=== PATIENT | female | born 1960 | race Caucasian/White ===

== ENCOUNTER 2021-01-27 20:47 | Emergency (ER) | payer BC ==
--- NOTE | 2021-01-27 20:49 | ERPHSYRPT ---
- History of Present Illness Time Seen by Provider: 01/27/21 20:49 Source: patient Exam Limitations: no limitations Physician History: This is a 60-year-old white female who was walking down the steps and misstepped falling and hitting her left side of her head and face. Patient is not on any blood thinning medicine. Her tetanus status is up-to-date. She stated that she received a tetanus shot approximate August 2020. Patient did not lose consciousness. There are no other areas on the body that are painful per her report. Patient denies neck pain Occurred: just prior to arrival Reason for Fall: lost balance Injuries/Pain Location: head, face (Left ear) Loss of Consciousness: no loss of consciousness Quality: other (Tenderness) Severity of Pain-Max: moderate Severity of Pain-Current: moderate Associated Symptoms (Fall): denies symptoms Allergies/Adverse Reactions: latex Allergy (Verified 01/27/21 21:01) Home Medications: Escitalopram Oxalate 1 tab PO DAILY 01/27/21 [History] Hydrochlorothiazide 1 tab PO DAILY 01/27/21 [History] Levothyroxine Sodium 50 Mcg [Synthroid 50 Mcg] 1 tab PO DAILY 01/27/21 [History] Losartan Potassium 1 tab PO DAILY 01/27/21 [History] Travel Risk - International Travel Have you traveled outside of the country in past 3 weeks: No - Coronavirus Screening Are you exhibiting any of the following symptoms?: No Close contact with a COVID-19 positive Pt in past 14-21 Days: No - Vaccine Status Have you recieved a Covid-19 vaccination: No - Review of Systems Constitutional: No Symptoms Eyes: No Symptoms Ears, Nose, & Throat: No Symptoms Respiratory: No Symptoms Cardiac: No Symptoms Abdominal/Gastrointestinal: No Symptoms Genitourinary Symptoms: No Symptoms Musculoskeletal: No Symptoms Skin: Other (Abrasion to the left ear and left temporoparietal area) Neurological: No Symptoms Psychological: No Symptoms Endocrine: No Symptoms Hematologic/Lymphatic: No Symptoms Immunological/Allergic: No Symptoms All Other Systems: Reviewed and Negative - Past Medical History Pertinent Past Medical History: Yes - Past Surgical History Past Surgical History: Yes - Nursing Vital Signs Nursing Vital Signs: Initial Vital Signs Pulse Rate 80 01/27/21 20:47 Respiratory Rate 16 01/27/21 20:47 Blood Pressure 143/78 01/27/21 20:47 O2 Sat by Pulse Oximetry 98 01/27/21 20:47 Pain Scale Pain Intensity 3 - Chelsey Coma Score Best Eye Response (Chelsey): (4) open spontaneously Best Verbal Response (Chelsey): (5) oriented Best Motor Response (Chelsey): (6) obeys commands [place] Total: 15 - Physical Exam General Appearance: no apparent distress, alert, anxiety Head Injury: lacerations (Superficial left inner portion of external ear), swelling (Left cheekbone), tenderness Eye Exam: PERRL/EOMI, eyes nml inspection ENT Exam: airway nml, nml ext.inspection Neck Exam: supple, trachea midline, full range of motion, normal alignment, normal inspection Respiratory/Chest Exam: No chest tenderness, No respiratory distress Gastrointestinal Exam: No tenderness Rectal Exam: not done Back Exam: normal inspection, normal range of motion, No CVA tenderness, No vertebral tenderness Extremity Exam: normal inspection, normal range of motion, capillary refill <3 sec, pelvis stable Neurologic Exam: alert, oriented x 3, cooperative, 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 No foreign bodies and no active bleeding) O2 Delivery: Room Air - Course Nursing assessment & vital signs reviewed: Yes Ordered Tests: Active Orders 24 hr Category Date Time Status HEAD WITHOUT CONTRAST [CT] Stat Exams 01/27/21 21:20 Taken Medication Summary Discontinued Medications Generic Name Dose Route Start Last Admin Trade Name Jeri PRN Reason Stop Dose Admin Morphine Sulfate 4 mg 01/27/21 21:20 01/27/21 21:55 Morphine Sulfate 4 Mg Inj IM 01/27/21 21:21 4 mg STAT ONE Administration Morphine Sulfate Confirm 01/27/21 21:54 Morphine Sulfate 4 Mg Inj Administered 01/27/21 21:55 Dose 4 mg .ROUTE .STK-MED ONE Ondansetron HCl 4 mg 01/27/21 21:19 01/27/21 21:33 Zofran Odt 4 Mg PO 01/27/21 21:20 4 mg STAT ONE Administration Ondansetron HCl Confirm 01/27/21 21:33 Zofran Odt 4 Mg Administered 01/27/21 21:34 Dose 4 mg .ROUTE .STK-MED ONE - Progress Progress: improved, pain not gone completely, re-examined Progress Note: 01/27/21 22:50 Cat scan of the head without contrast shows no evidence for acute intracranial abnormality. Counseled pt/family regarding: diagnosis, need for follow-up, rad results - Departure Departure Disposition: Home Clinical Impression: Head trauma, Scalp laceration, Laceration of external ear Condition: Stable Critical Care Time: No Referrals: KENNY VARGAS [Primary Care Provider] - Additional Instructions: Keep all abrasion and laceration sites for 24 hours. After 24 hours may wash the areas with soap and water each day. Staple removal in 8 days. Take medication as prescribed. Follow-up with primary care physician on an as-needed basis. Prescriptions: Ondansetron ODT 4 MG [Zofran Odt 4 mg] 4 mg PO Q6H PRN PRN #10 tab.rapdis PRN Reason: Vomiting Hydrocodone/APAP 5/325 [Jacob 5/325 mg] 1 each PO Q8H PRN PRN #6 tablet MDD 3 PRN Reason: Pain Cephalexin Mh 500 mg [Keflex 500 mg] 500 mg PO TID #15 capsule
[2021-01-27] MEDS ORDERED: ZOFRAN ODT 4 MG PO ONE (21:19)
[2021-01-27] MEDS ORDERED: MORPHINE SULFATE 4 MG INJ IM ONE (21:20)
[2021-01-27] MEDS ORDERED: ZOFRAN ODT 4 MG ONE (21:33)
[2021-01-27] MEDS ORDERED: MORPHINE SULFATE 4 MG INJ ONE (21:54)
[2021-01-27 22:04] VITALS: BP 148/82
[2021-01-27] MEDS ORDERED: NORCO 5/325 MG PO ONE (22:49)
[2021-01-27] MEDS ORDERED: NORCO 5/325 MG ONE (22:51)
[2021-01-27] MEDS ORDERED: KEFLEX 500 MG PO ONE (22:54)
[2021-01-27] MEDS ORDERED: KEFLEX 500 MG ONE (22:56)
[2021-01-27 23:14] VITALS: PULSE 80; O2SAT 99
--- NOTE | 2021-01-28 06:48 | XRAY ---
Indication: Left ear laceration following fall. Multiple contiguous axial images obtained through the head without contrast. Comparison: None Normal appearing brain parenchyma, ventricles, and bony calvarium for patient's age. Tiny focus left parietal scalp laceration. Mild mucosal thickening floor right maxillary sinus. Remaining paranasal sinuses and mastoid air cells are clear. Impression: Left parietal scalp laceration and mild right maxillary sinus disease. Remaining CT head without contrast exam is negative. Comment: Preliminary interpretation was made by [facility]. No critical discrepancy.
== END 2021-01-27 23:10 | disposition home or self-care (01) ==
LOC: ED 20:47
DX: S01.01XA Laceration without foreign body of scalp, initial encounter (principal); S01.312A Laceration without foreign body of left ear, initial encounter; W10.9XXA Fall (on) (from) unspecified stairs and steps, initial encounter
CPT/HCPCS: 12001; 12011; 70450; 96372; 99284; J2270; Q0162; A9270-GY